=== PATIENT | female | born 1965 | race Caucasian/White ===

== ENCOUNTER 2017-06-27 10:34 | Observation (INO) | payer BC, OTHER ==
[~2017-06-27] VITALS: Ht 172.7 cm; Wt 108.0 kg
[2017-06-27] VITALS (9 sets, daily range): BP systolic 92–140; BP diastolic 51–63; PULSE 86–102; RESP 16–20; TEMP 98.7–100.7; O2SAT 92–100
[~2017-06-27 10:34] MED LIST: IBUP-232 PO; Z.0.NO CURRENT MEDS
[2017-06-27] MEDS ORDERED: LEVO125T4 PO (11:14)
[2017-06-27] MEDS ORDERED: BACT400T PO (11:14)
[2017-06-27] MEDS ORDERED: DULO1CAP PO (11:14)
[2017-06-27] MEDS ORDERED: GABA100C4 PO (11:14)
[2017-06-27] MEDS ORDERED: CYAN1000P IM (11:14)
[2017-06-27] MEDS ORDERED: SODIUM CHLOR 0.9% 1000 ML INJ 1,000 ML IV ONE (11:30)
[2017-06-27] MEDS ORDERED: diphenhydrAMINE HCL 50 MG/ML VIAL IV PUSH ONE ×2 (11:30→21:30)
--- NOTE | 2017-06-27 11:40 | PD ---
HPI Chief Complaint: Fever Time Seen by Provider: 11:16 Travel History International Travel<30 days: No Contact w/Intl Traveler<30days: No Traveled to known affect area: No History of Present Illness HPI 52 yo female here for evaluation of rash and fever. Per patient the fever has been ongoing since Friday and the rash has been ongoing for the past 3-4 days. Per patient she is currently on Bactrim and is about to finish Bactrim for cellulitis to her left leg. Patient is currently being treated with chemotherapy for melanoma that has metastasized. Patient follows with the [facility] for [facility]. [facility] she has been having high 102 fevers and because of the rash that told her to come here to get evaluated. She follows with Dr. Roberts in [place]. Per patient she last received her chemo 2 weeks ago. She has been doing fine. No new treatments. Per patient the rash is itchy and not painful. Patient has a rash over her arms torso and legs. She states that about 2 weeks ago she was diagnosed with left leg colitis and started on Bactrim. She has taken Bactrim before with no issues. Per patient she has no chest pain. No diarrhea. No urinary symptoms. No cough or runny nose. No bowel movement changes. No other symptoms. Per patient she has no pain other than itchiness to where the rash is. Has no allergies to medication. No other medical issues at this time. PFSH Past Medical History Chemotherapy: Yes ?: Not Menopausal: Yes Social History Alcohol Use: No (occasional) Tobacco Use: No Substance Use: No Allergies-Medications (Allergen,Severity, Reaction): Coded Allergies: No Known Allergies (Verified , 04/11/08) Reported Meds & Prescriptions Reported Meds & Active Scripts Active Reported Bactrim (Sulfamethoxazole-Trimethoprim) 400-80 Mg Tab 1 Tab PO BID Gabapentin 100 Mg Cap 100 Mg PO TID Duloxetine DR (Duloxetine HCl) 20 Mg Capdr 20 Mg PO BID Cyanocobalamin Inj (Cyanocobalamin) 1,000 Mcg/Ml Inj 1,000 Mcg IM Q30D Levothyroxine (Levothyroxine Sodium) 125 Mcg Tab 125 Mcg PO DAILY Review of Systems Except as stated in HPI: all other systems reviewed are Neg Physical Exam Narrative GENERAL: SKIN: Warm and dry. Patient has an erythematous blanchable rash on the arms and legs that is pruritic and not painful. HEAD: Atraumatic. Normocephalic. EYES: Pupils equal and round. No scleral icterus. No injection or drainage. ENT: No nasal bleeding or discharge. Mucous membranes pink and moist. Tongue is midline. No uvula deviation. TMs are clear with no sign of infection or perforation. NECK: Trachea midline. No JVD. CARDIOVASCULAR: Regular rate and rhythm. No murmurs, S3, S4. RESPIRATORY: No accessory muscle use. Clear to auscultation. Breath sounds equal bilaterally. GASTROINTESTINAL: Abdomen soft, non-tender, nondistended. Hepatic and splenic margins not palpable. MUSCULOSKELETAL: Extremities without clubbing, cyanosis, or edema. No obvious deformities. Full range of motion of the upper and lower extremities bilaterally. 2+ pulses bilaterally. NEUROLOGICAL: Awake and alert. No obvious cranial nerve deficits. Motor grossly within normal limits. Five out of 5 muscle strength in the arms and legs. Normal speech. PSYCHIATRIC: Appropriate mood and affect; insight and judgment normal. Data Data Last Documented VS Vital Signs Date Time Temp Pulse Resp B/P (MAP) Pulse Ox O2 Delivery O2 Flow Rate FiO2 06/27/17 13:21 100.7 95 18 117/57 (77) 97 06/27/17 12:25 Room Air Orders Orders Electrocardiogram (06/27/17 11:16) Complete Blood Count With Diff (06/27/17 11:16) Comprehensive Metabolic Panel (06/27/17 11:16) Prothrombin Time / Inr (Pt) (06/27/17 11:16) Act Partial Throm Time (Ptt) (06/27/17 11:16) Blood Culture (06/27/17 11:16) Lipase (06/27/17 11:16) Urinalysis - C+S If Indicated (06/27/17 11:16) Magnesium (Mg) (06/27/17 11:16) Thyroid Stimulating Hormone (06/27/17 11:16) Chest, Single Ap (06/27/17 11:16) Iv Access Insert/Monitor (06/27/17 11:16) Ecg Monitoring (06/27/17 11:16) Oximetry (06/27/17 11:16) Lactic Acid Sepsis Protocol (06/27/17 11:16) Sodium Chlor 0.9% 1000 Ml Inj (Ns 1000 M (06/27/17 11:30) Diphenhydramine Inj (Benadryl Inj) (06/27/17 11:30) Us Leg Venous Doppler (06/27/17 ) Acetaminophen (Tylenol) (06/27/17 13:30) Influenzae A/B Antigen (06/27/17 13:47) Cefepime Inj (Maxipime Inj) (06/27/17 13:47) Admit Order (Ed Use Only) (06/27/17 15:58) Labs Laboratory Tests Test 06/27/17 11:36 White Blood Count 4.1 TH/MM3 Red Blood Count 4.68 MIL/MM3 Hemoglobin 13.6 GM/DL Hematocrit 39.8 % Mean Corpuscular Volume 85.1 FL Mean Corpuscular Hemoglobin 29.2 PG Mean Corpuscular Hemoglobin Concent 34.3 % Red Cell Distribution Width 14.4 % Platelet Count 126 TH/MM3 Mean Platelet Volume 7.3 FL Neutrophils (%) (Auto) 81.7 % Lymphocytes (%) (Auto) 8.8 % Monocytes (%) (Auto) 4.0 % Eosinophils (%) (Auto) 5.3 % Basophils (%) (Auto) 0.2 % Neutrophils # (Auto) 3.4 TH/MM3 Lymphocytes # (Auto) 0.4 TH/MM3 Monocytes # (Auto) 0.2 TH/MM3 Eosinophils # (Auto) 0.2 TH/MM3 Basophils # (Auto) 0.0 TH/MM3 CBC Comment DIFF FINAL Differential Comment Prothrombin Time 11.3 SEC Prothromb Time International Ratio 1.1 RATIO Activated Partial Thromboplast Time 31.7 SEC Urine Color YELLOW Urine Turbidity CLEAR Urine pH 6.0 Urine Specific [place] 1.030 Urine Protein 30 mg/dL Urine Glucose (UA) NEG mg/dL Urine Ketones NEG mg/dL Urine Occult Blood NEG Urine Nitrite NEG Urine Bilirubin NEG Urine Urobilinogen 2.0 MG/DL Urine Leukocyte Esterase NEG Urine RBC 3 /hpf Urine WBC 5 /hpf Urine Squamous Epithelial Cells 4 /hpf Urine Mucus FEW /lpf Microscopic Urinalysis Comment CULT NOT INDICATED Blood Urea Nitrogen 14 MG/DL Creatinine 1.33 MG/DL Random Glucose 109 MG/DL Total Protein 7.6 GM/DL Albumin 3.9 GM/DL Calcium Level 8.4 MG/DL Magnesium Level 1.9 MG/DL Alkaline Phosphatase 89 U/L Aspartate Amino Transf (AST/SGOT) 34 U/L Alanine Aminotransferase (ALT/SGPT) 35 U/L Total Bilirubin 0.6 MG/DL Sodium Level 136 MEQ/L Potassium Level 3.9 MEQ/L Chloride Level 102 MEQ/L Carbon Dioxide Level 27.1 MEQ/L Anion Gap 7 MEQ/L Estimat Glomerular Filtration Rate 42 ML/MIN Lactic Acid Level 1.0 mmol/L Lipase 117 U/L Thyroid Stimulating Hormone 3rd Gen 11.600 uIU/ML MDM Medical Decision Making Medical Screen Exam Complete: Yes Emergency Medical Condition: Yes Medical Record Reviewed: Yes Interpretation(s) CBC & BMP Diagram 06/27/17 11:36 Total Protein 7.6, Albumin 3.9, Calcium Level 8.4 L, Magnesium Level 1.9, Alkaline Phosphatase 89, Aspartate Amino Transf (AST/SGOT) 34, Alanine Aminotransferase (ALT/SGPT) 35, Total Bilirubin 0.6 Last Impressions Chest X-Ray 06/27/17 1116 Signed Impressions: Service Date/Time: Tuesday, June 27, 2017 11:44 - CONCLUSION: No acute disease. Board Certified Radiologist. This report was verified electronically. Lower Extremity Ultrasound 06/27/17 0000 Signed Impressions: Service Date/Time: Tuesday, June 27, 2017 12:34 - CONCLUSION: 1. No DVT left leg. 2. Several lymph nodes in left groin the largest measuring 2.8 x 1.5 x 2.4 cm. Edson Yoder MD lactic acid WNL UA WNL Differential Diagnosis Sepsis versus neutropenic fever versus rash versus allergic reaction versus cellulitis versus normal exam versus UTI versus pneumonia Narrative Course 52-year-old female that presents to the ED for evaluation of rash and fever. Patient was properly examined and was found to have signs and symptoms of unclear etiology at this time. She does not appear to have a fever tachycardia at this time. She does have significant history of recent diagnosis with cellulitis as well as cancer patient. Labs and imaging were ordered. She was given Benadryl here as well as IV fluids to see if this will help with the rash. labs and imaging showed no sign of acute disease. We repeated the patient 's heart rate as well as a pressure and it came elevated. She was given Tylenol. Unclear etiology of the fever. No obvious source at this time. My attending recommends starting patient cefepime secondary to cancer patient. Recommends admission for further eval of fever of unknown etiology. I was able to get in touch with the patient's oncologist who recommends the patient be admitted for further eval as well as from the rash she tells us that she is actually taking immunotherapy and no chemotherapy and the rash to be a reaction to the immunotherapy. She cannot say for certain that it could be related to the Bactrim or the immunotherapy and recommends that if rash does not improve after bactrim DC'd to start patient on high-dose steroids that should improve the rash. She gives me her cell phone which is [phone] (Dr Roberts). Case discussed with Dr Collado who agrees to admission for obs for now. Diagnosis Primary Impression: Fever of unknown origin (FUO) Additional Impression: Rash due to allergy Admitting Information Admitting Physician Requests: Mark Braxton Jun 27, 2017 11:40
[2017-06-27 11:53] LABS: AUTOMATED NEUTROPHIL # 3.4 TH/MM3 (1.8-7.7); BASOPHIL % 0.2 % (0.0-2.0); EOSINOPHIL # 0.2 TH/MM3 (0-0.4); EOSINOPHIL % 5.3 % (0.0-4.0); HEMATOCRIT 39.8 % (35.0-46.0); HEMOGLOBIN 13.6 GM/DL (11.6-15.3); LYMPH % 8.8 % (9.0-44.0); LYMPHOCYTE # 0.4 TH/MM3 (1.0-4.8); MEAN CELL VOLUME 85.1 FL (80.0-100.0); MEAN CORPUSCULAR HEMOGLOBIN 29.2 PG (27.0-34.0); MEAN CORPUSCULAR HGB CONC 34.3 % (32.0-36.0); MEAN PLATELET VOLUME 7.3 FL (7.0-11.0); MONOCYTE # 0.2 TH/MM3 (0-0.9); NEUT % 81.7 % (16.0-70.0); PLATELET COUNT 126 TH/MM3 (150-450); RED BLOOD COUNT 4.68 MIL/MM3 (4.00-5.30); RED CELL DISTRIBUTION WIDTH 14.4 % (11.6-17.2); WHITE BLOOD COUNT 4.1 TH/MM3 (4.0-11.0)
[2017-06-27 12:03] LABS: INTERNATIONAL NORMALIZED RATIO 1.1 RATIO; PROTHROMBIN TIME - PATIENT 11.3 SEC (9.8-11.6)
--- NOTE | 2017-06-27 12:06 | RADRPT ---
EXAM DATE/TIME: 06/27/2017 11:44 [facility] COMPARISON: No previous studies available for comparison. INDICATIONS : Fever, body aches, and whole body rashing. MEDICAL HISTORY : Melanoma. SURGICAL HISTORY : None. ENCOUNTER: Initial ACUITY: 2 days PAIN SCORE: 3/10 LOCATION: Entire body. FINDINGS: A single view of the chest demonstrates the lungs to be symmetrically aerated without evidence of mas s, infiltrate or effusion. The cardiomediastinal contours are unremarkable. Osseous structures are intact. CONCLUSION: No acute disease. Board Certified Radiologist. This report was verified electronically.
[2017-06-27 12:07] LABS: ALBUMIN 3.9 GM/DL (3.4-5.0); ALT (GPT) 35 U/L (10-53); AST (GOT) 34 U/L (15-37); BICARBONATE 27.1 MEQ/L (21.0-32.0); BLOOD UREA NITROGEN 14 MG/DL (7-18); CALCIUM 8.4 MG/DL (8.5-10.1); CHLORIDE 102 MEQ/L (98-107); CREATININE 1.33 MG/DL (0.50-1.00); GLOMERULAR FILTRATION RATE 42 ML/MIN (>89); GLUCOSE,RANDOM 109 MG/DL (74-106); MAGNESIUM 1.9 MG/DL (1.5-2.5); SODIUM (NA) 136 MEQ/L (136-145)
[2017-06-27 12:18] LABS: ALKALINE PHOSPHATASE 89 U/L (45-117); TOTAL BILIRUBIN ADULT 0.6 MG/DL (0.2-1.0); TOTAL PROTEIN 7.6 GM/DL (6.4-8.2)
[2017-06-27 12:23] LABS: BLOOD, URINE NEG (NEG); GLUCOSE,URINE NEG (NEG); KETONE, URINE NEG (NEG); MUCUS URINE FEW /lpf (OCC); NITRITE,URINE NEG (NEG); SQUAMOUS EPITHELIAL CELL URINE 4 /hpf (0-5); URINE COLOR YELLOW (YELLW/STRAW); URINE LEUKOCYTE ESTERASE NEG (NEG)
[2017-06-27 12:28] LABS: BILIRUBIN, URINE NEG (NEG)
--- NOTE | 2017-06-27 13:18 | RADRPT ---
EXAM DATE/TIME: 06/27/2017 12:34 [facility] COMPARISON: No previous studies available for comparison. INDICATIONS : Left leg swelling. MEDICAL HISTORY : Melenoma. Left leg swelling. SURGICAL HISTORY : Chemotherapy. ENCOUNTER: Initial ACUITY: 1 week PAIN SCORE: 2/10 LOCATION: Left leg. TECHNIQUE: Venous ultrasound of the leg was performed from the inguinal ligament to the proximal calf. Real-estella e, color Doppler and spectral tracing, compression and augmentation techniques were used. FINDINGS: There is normal compressibility of the deep venous system from the inguinal region to the proximal ca lf. No echogenic clot is seen in the lumen of the common femoral, femoral, popliteal, and posterior tibial veins. There is a normal response of the venous system to proximal and distal augmentation an d respiration. CONCLUSION: 1. No DVT left leg. 2. Several lymph nodes in left groin the largest measuring 2.8 x 1.5 x 2.4 cm. Edson Yoder MD on June 27, 2017 at 13:14 Board Certified Radiologist. This report was verified electronically.
[2017-06-27] MEDS ORDERED: ACETAMINOPHEN 325 MG TAB PO ONE (13:30)
--- NOTE | 2017-06-27 13:38 | PD ---
Physical Exam Narrative I, Dr. Latham, have reviewed the advance practice practitioner's documentation and am in agreement, met with the patient face to face, made the diagnosis, and the medical decision making was done by me. *My assessment and Findings: Fever in immunocompromised patient vs. neutropenic fever vs. bacteremia vs. drug reaction 52yo F with melanoma on chemo here with c/o fever since Friday. Pt has been having fever and is on bactrim for left leg cellulitis. Pt then developed a generalized maculopapular rash that started in her legs and now in abdomen, chest, arms. No mucosal involvement. This rash is itchy and improved with diphenhydramine. Feel that this may be related to bactrim. Labs reviewed, no leukocytosis. H/H normal. Mild thrombocytopenia at 126,000. Lactic acid normal. UA negative. CXR negative. US left leg showed no DVT. Several lymph nodes in left groin. Pt is febrile at 100.7F. Since pt is immunocompromise, will sent blood culture and cover with cefepime. Pt given acetaminophen for fever. Will admit for observation. Discussed with pt's oncologist who said that pt is actually on immunotherapy and that if rash does not improve after discontinuation of bactrim, that this could be autoimmune dermatitis and that pt will then need high dose steroid. Will let admitting team know about this. Data Data Last Documented VS Vital Signs Date Time Temp Pulse Resp B/P (MAP) Pulse Ox O2 Delivery O2 Flow Rate FiO2 06/27/17 15:21 90 16 105/56 (72) 96 Room Air 06/27/17 13:21 100.7 Orders Orders Electrocardiogram (06/27/17 11:16) Complete Blood Count With Diff (06/27/17 11:16) Comprehensive Metabolic Panel (06/27/17 11:16) Prothrombin Time / Inr (Pt) (06/27/17 11:16) Act Partial Throm Time (Ptt) (06/27/17 11:16) Blood Culture (06/27/17 11:16) Lipase (06/27/17 11:16) Urinalysis - C+S If Indicated (06/27/17 11:16) Magnesium (Mg) (06/27/17 11:16) Thyroid Stimulating Hormone (06/27/17 11:16) Chest, Single Ap (06/27/17 11:16) Iv Access Insert/Monitor (06/27/17 11:16) Ecg Monitoring (06/27/17 11:16) Oximetry (06/27/17 11:16) Lactic Acid Sepsis Protocol (06/27/17 11:16) Sodium Chlor 0.9% 1000 Ml Inj (Ns 1000 M (06/27/17 11:30) Diphenhydramine Inj (Benadryl Inj) (06/27/17 11:30) Us Leg Venous Doppler (06/27/17 ) Acetaminophen (Tylenol) (06/27/17 13:30) Influenzae A/B Antigen (06/27/17 13:47) Cefepime Inj (Maxipime Inj) (06/27/17 13:47) Admit Order (Ed Use Only) (06/27/17 15:58) Labs Laboratory Tests Test 06/27/17 11:36 White Blood Count 4.1 TH/MM3 Red Blood Count 4.68 MIL/MM3 Hemoglobin 13.6 GM/DL Hematocrit 39.8 % Mean Corpuscular Volume 85.1 FL Mean Corpuscular Hemoglobin 29.2 PG Mean Corpuscular Hemoglobin Concent 34.3 % Red Cell Distribution Width 14.4 % Platelet Count 126 TH/MM3 Mean Platelet Volume 7.3 FL Neutrophils (%) (Auto) 81.7 % Lymphocytes (%) (Auto) 8.8 % Monocytes (%) (Auto) 4.0 % Eosinophils (%) (Auto) 5.3 % Basophils (%) (Auto) 0.2 % Neutrophils # (Auto) 3.4 TH/MM3 Lymphocytes # (Auto) 0.4 TH/MM3 Monocytes # (Auto) 0.2 TH/MM3 Eosinophils # (Auto) 0.2 TH/MM3 Basophils # (Auto) 0.0 TH/MM3 CBC Comment DIFF FINAL Differential Comment Prothrombin Time 11.3 SEC Prothromb Time International Ratio 1.1 RATIO Activated Partial Thromboplast Time 31.7 SEC Urine Color YELLOW Urine Turbidity CLEAR Urine pH 6.0 Urine Specific [place] 1.030 Urine Protein 30 mg/dL Urine Glucose (UA) NEG mg/dL Urine Ketones NEG mg/dL Urine Occult Blood NEG Urine Nitrite NEG Urine Bilirubin NEG Urine Urobilinogen 2.0 MG/DL Urine Leukocyte Esterase NEG Urine RBC 3 /hpf Urine WBC 5 /hpf Urine Squamous Epithelial Cells 4 /hpf Urine Mucus FEW /lpf Microscopic Urinalysis Comment CULT NOT INDICATED Blood Urea Nitrogen 14 MG/DL Creatinine 1.33 MG/DL Random Glucose 109 MG/DL Total Protein 7.6 GM/DL Albumin 3.9 GM/DL Calcium Level 8.4 MG/DL Magnesium Level 1.9 MG/DL Alkaline Phosphatase 89 U/L Aspartate Amino Transf (AST/SGOT) 34 U/L Alanine Aminotransferase (ALT/SGPT) 35 U/L Total Bilirubin 0.6 MG/DL Sodium Level 136 MEQ/L Potassium Level 3.9 MEQ/L Chloride Level 102 MEQ/L Carbon Dioxide Level 27.1 MEQ/L Anion Gap 7 MEQ/L Estimat Glomerular Filtration Rate 42 ML/MIN Lactic Acid Level 1.0 mmol/L Lipase 117 U/L Free Thyroxine 0.93 NG/DL Thyroid Stimulating Hormone 3rd Gen 11.600 uIU/ML MDM Supervised Visit with [facility]: Yes Interpretation(s) EKG: NSR 71bpm. Normal axis. No ST segment elevation or depression. Diagnosis Primary Impression: Fever Qualified Codes: R50.9 - Fever, unspecified Olivia Latham DO Jun 27, 2017 13:38
[2017-06-27] MEDS ORDERED: CEFEPIME INJ 2,000 MG in SODIUM CHLORIDE 0.9% INJ 100 ML IV STA (13:47)
[2017-06-27] MEDS ORDERED: BISACODYL 10 MG SUPP RECTAL PRN (16:00)
[2017-06-27] MEDS ORDERED: MAGNESIUM HYDROXIDE SUSP 30 ML CUP PO PRN (16:00)
[2017-06-27] MEDS ORDERED: LACTULOSE SYRUP 20 GM/30 ML CUP PO PRN (16:00)
[2017-06-27] MEDS ORDERED: SODIUM CHLORIDE 0.9% FLUSH 10 ML FLUSH IV FLUSH PRN (16:00)
[2017-06-27] MEDS ORDERED: NALOXONE HCL 0.4 MG/ML AMP IV PUSH PRN (16:00)
[2017-06-27] MEDS ORDERED: SENNOSIDES 8.6 MG TAB PO PRN (16:00)
[2017-06-27] MEDS ORDERED: ONDANSETRON HCL 4 MG/2 ML VIAL IVP PRN (16:00)
[2017-06-27] MEDS: SODIUM CHLOR 0.9% 1000 ML INJ 1,000 ML IV SCH (18:32)
[2017-06-27] MEDS: HEPARIN SODIUM - SQ 10,000 UNITS/ML VIAL SQ SCH (18:32)
[2017-06-27] MEDS: DOCUSATE SODIUM 50 MG/SENNA 8.6 MG TAB PO SCH (21:00)
--- NOTE | 2017-06-27 21:19 | HHI.HP ---
[facility] Admission Diagnosis fever of unknown etiology, on immunotherapy, rash Diagnoses: (1) Fever of unknown origin (FUO) (2) Rash due to allergy Chief Complaint: Fever and rash Travel History International Travel<30 Days: No Contact w/Intl Traveler <30 Da: No Traveled to Known Affected Are: No History of Present Illness Mrs. Sevilla is a very pleasant female patient with a history of recurrent metastatic melanoma being treated at the [facility] with immunotherapy. She presented to the emergency room at the advice of her primary care physician at the [facility] for evaluation of fever and pruritic rash 2 days. The patient is seen in the CDU. The patient was treated 2 weeks ago for left lower extremity cellulitis with Bactrim and she only has 1 dose remaining since treatment started. She reports that she has had a fever up to 102 that has persisted despite treatment with Tylenol and Motrin (fever initially responded to these but not this morning prompting her to seek medical advice). Her symptoms started on 06/25. Along with the fever, came a rash that she initially thought was a "heat rash" until it continued to spread all over her body over the course of 2 days. The rash is pruritic in nature. She has some associated chills, increased thirst, and nausea without vomiting. She denies any diarrhea , cough, chest pain, or shortness of breath. Review of Systems Except as stated in HPI: all other systems reviewed are Neg Past Family Social History Past Medical History Metastatic melanoma recurrence -currently on immunotherapy at [facility] with oncologist Dr. Roberts Peripheral neuropathy Hypothyroidism Vitamin B12 deficiency . Past Surgical History Bilateral breast biopsies Wide excision of the left upper thigh melanoma with sentinel node biopsy 2015 . Reported Medications Reported Meds & Active Scripts Active Reported Bactrim (Sulfamethoxazole-Trimethoprim) 400-80 Mg Tab 1 Tab PO BID Gabapentin 100 Mg Cap 100 Mg PO TID Duloxetine DR (Duloxetine HCl) 20 Mg Capdr 20 Mg PO BID Cyanocobalamin Inj (Cyanocobalamin) 1,000 Mcg/Ml Inj 1,000 Mcg IM Q30D Levothyroxine (Levothyroxine Sodium) 125 Mcg Tab 125 Mcg PO DAILY . Allergies: Coded Allergies: No Known Allergies (Verified Allergy, Mild, 04/11/08) Family History Family history is unknown as patient is adopted -her children are alive and well . Social History Tobacco: Smoked socially for a couple of years in her 20s . Physical Exam Vital Signs Vital Signs Date Time Temp Pulse Resp B/P (MAP) Pulse Ox O2 Delivery O2 Flow Rate FiO2 06/27/17 18:44 99 06/27/17 18:22 98.7 92 18 108/61 (77) 99 06/27/17 17:23 86 18 101/57 (72) 98 Room Air 06/27/17 16:21 86 18 92/54 (67) 96 Room Air 06/27/17 15:21 90 16 105/56 (72) 96 Room Air 06/27/17 14:21 90 18 112/57 (75) 100 06/27/17 13:21 100.7 95 18 117/57 (77) 97 06/27/17 12:25 102 18 126/59 (81) 100 Room Air 06/27/17 10:35 99.8 91 16 140/63 (88) 99 Physical Exam CONSTITUTIONAL: This is an overweight female patient, complaining of chills. INTEGUMENTARY: Diffuse erythematous maculopapular rash on entire torso, legs, arms and facial flushing noted. HEAD: Atraumatic. Normocephalic. EYES: No scleral icterus. No injection or drainage. ENT: Nose without bleeding, purulent drainage. NECK: Trachea midline. No JVD. CARDIOVASCULAR: Regular rate and rhythm without murmurs, gallops, or rubs. RESPIRATORY: Clear to auscultation. Breath sounds equal bilaterally. No wheezes , rales, or rhonchi. GASTROINTESTINAL: Abdomen soft, non-tender, nondistended. No guarding. MUSCULOSKELETAL: Extremities without clubbing, cyanosis, or edema. No calf tenderness. NEUROLOGICAL: Awake and alert. Motor and sensory grossly within normal limits. Normal speech. . Laboratory Laboratory Tests Test 06/27/17 11:36 White Blood Count 4.1 Red Blood Count 4.68 Hemoglobin 13.6 Hematocrit 39.8 Mean Corpuscular Volume 85.1 Mean Corpuscular Hemoglobin 29.2 Mean Corpuscular Hemoglobin Concent 34.3 Red Cell Distribution Width 14.4 Platelet Count 126 Mean Platelet Volume 7.3 Neutrophils (%) (Auto) 81.7 Lymphocytes (%) (Auto) 8.8 Monocytes (%) (Auto) 4.0 Eosinophils (%) (Auto) 5.3 Basophils (%) (Auto) 0.2 Neutrophils # (Auto) 3.4 Lymphocytes # (Auto) 0.4 Monocytes # (Auto) 0.2 Eosinophils # (Auto) 0.2 Basophils # (Auto) 0.0 CBC Comment DIFF FINAL Differential Comment Prothrombin Time 11.3 Prothromb Time International Ratio 1.1 Activated Partial Thromboplast Time 31.7 Urine Color YELLOW Urine Turbidity CLEAR Urine pH 6.0 Urine Specific [place] 1.030 Urine Protein 30 Urine Glucose (UA) NEG Urine Ketones NEG Urine Occult Blood NEG Urine Nitrite NEG Urine Bilirubin NEG Urine Urobilinogen 2.0 Urine Leukocyte Esterase NEG Urine RBC 3 Urine WBC 5 Urine Squamous Epithelial Cells 4 Urine Mucus FEW Microscopic Urinalysis Comment CULT NOT INDICATED Blood Urea Nitrogen 14 Creatinine 1.33 Random Glucose 109 Total Protein 7.6 Albumin 3.9 Calcium Level 8.4 Magnesium Level 1.9 Alkaline Phosphatase 89 Aspartate Amino Transf (AST/SGOT) 34 Alanine Aminotransferase (ALT/SGPT) 35 Total Bilirubin 0.6 Sodium Level 136 Potassium Level 3.9 Chloride Level 102 Carbon Dioxide Level 27.1 Anion Gap 7 Estimat Glomerular Filtration Rate 42 Lactic Acid Level 1.0 Lipase 117 Thyroid Stimulating Hormone 3rd Gen 11.600 Date/Time Source Procedure Growth Status 06/27/17 11:36 Blood Peripheral Aerobic Blood Culture Pending Received 06/27/17 11:36 Blood Peripheral Anaerobic Blood Culture Pending Received 06/27/17 15:50 Nasal Washing Influenza Types A,B Antigen (JIMMY) - Final NEGATIVE FOR FLU A AND B ANTIGEN.... Complete Result Diagram: 06/27/17 1136 06/27/17 1136 Imaging Last Impressions Chest X-Ray 06/27/17 1116 Signed Impressions: Service Date/Time: Tuesday, June 27, 2017 11:44 - CONCLUSION: No acute disease. Board Certified Radiologist. This report was verified electronically. Lower Extremity Ultrasound 06/27/17 0000 Signed Impressions: Service Date/Time: Tuesday, June 27, 2017 12:34 - CONCLUSION: 1. No DVT left leg. 2. Several lymph nodes in left groin the largest measuring 2.8 x 1.5 x 2.4 cm. Edson Yoder MD . Caprini VTE Risk Assessment Caprini VTE Risk Assessment: Mod/High Risk (score >= 2) Caprini Risk Assessment Model Point Value = 1 Point Value = 2 Point Value = 3 Point Value = 5 Age 41-60 Minor surgery BMI > 25 kg/m2 Swollen legs Varicose veins or History of unexplained or recurrent spontaneous Oral contraceptives or hormone replacement Sepsis (< 1 month) Serious lung disease, including pneumonia (< 1 month) Abnormal pulmonary function Acute myocardial infarction Congestive heart failure (< 1 month) History of inflammatory bowel disease Medical patient at bed rest Age 61-74 Arthroscopic surgery Major open surgery (> 45 min) Laparoscopic surgery (> 45 min) Malignancy Confined to bed (> 72 hours) Immobilizing plaster cast Central venous access Age >= 75 History of VTE Family history of VTE Factor V Leiden Prothrombin [id number] Lupus anticoagulant Anticardiolipin antibodies Elevated serum homocysteine Heparin-induced thrombocytopenia Other congenital or acquired thrombophilia Stroke (< 1 month) Elective arthroplasty Hip, pelvis, or leg fracture Acute spinal cord injury (< 1 month) Prophylaxis Regimen Total Risk Factor Score Risk Level Prophylaxis Regimen 0-1 Low Early ambulation 2 Moderate Order ONE of the following: *Sequential Compression Device (SCD) *Heparin 5000 units SQ BID 3-4 Higher Order ONE of the following medications: *Heparin 5000 units SQ TID *Enoxaparin/Lovenox 40 mg SQ daily (WT < 150 kg, CrCl > 30 mL/min) *Enoxaparin/Lovenox 30 mg SQ daily (WT < 150 kg, CrCl > 10-29 mL/min) *Enoxaparin/Lovenox 30 mg SQ BID (WT < 150 kg, CrCl > 30 mL/min) AND/OR *Sequential Compression Device (SCD) 5 or more Highest Order ONE of the following medications: *Heparin 5000 units SQ TID (Preferred with Epidurals) *Enoxaparin/Lovenox 40 mg SQ daily (WT < 150 kg, CrCl > 30 mL/min) *Enoxaparin/Lovenox 30 mg SQ daily (WT < 150 kg, CrCl > 10-29 mL/min) *Enoxaparin/Lovenox 30 mg SQ BID (WT < 150 kg, CrCl > 30 mL/min) AND *Sequential Compression Device (SCD) Assessment and Plan Problem List: (1) Fever of unknown origin (FUO) ICD Code: R50.9 - Fever, unspecified Status: Acute (2) Rash due to allergy ICD Code: R21 - Rash and other nonspecific skin eruption Status: Acute Assessment and Plan Mrs. Sevilla is a very pleasant female patient with a history of recurrent metastatic melanoma being treated at the [facility] with immunotherapy. She presented to the emergency room at the advice of her primary care physician at the [facility] for evaluation of fever and pruritic rash 2 days. Fever of unknown origin Diffuse maculopapular rash of uncertain etiology, suspect allergic reaction - Bactrim vs Immunotherapy -The case was discussed by the ER medical provider with the patient's [facility] oncologist Dr. Roberts - cell number [phone] -she provided her cell phone number in the event that we need to contact her any further -she recommended holding Bactrim and if there is no improvement in the rash or worsening of the rash, initiate high-dose steroids -Hold Bactrim -Normal saline IV fluids at 75 cc/h -Blood cultures 2 performed in the ED, await results -Acetaminophen 650 mg p.o. every 4 hours as needed fever -Benadryl 50 mg p.o. every 6 hours as needed pruritus -Infectious disease consultation -Negative influenza testing in the ED Renal insufficiency, acute -BUN 14, creatinine 1.33, estimated GFR 42 -IV fluid hydration as above -Avoid nephrotoxins -Monitor renal functions with BMP in a.m. Hypothyroidism -TSH elevated on admission but free T4 is within normal parameters -Continue home Synthroid Neuropathy -Resume home medications: Neurontin, Cymbalta DVT prophylaxis -Heparin 5000 units subcu every 12 hours Discussed Condition With Dr. Armstrong, patient, and RN Ashley Alexandra Jun 27, 2017 21:19
[2017-06-27] MEDS: SODIUM CHLORIDE 0.9% FLUSH 10 ML FLUSH IV FLUSH SCH (21:30)
[2017-06-27] MEDS: DULoxetine HCl DR 20 MG CAP PO SCH (21:30)
[2017-06-27] MEDS ORDERED: diphenhydrAMINE HCL 25 MG CAP PO ONE (21:30)
[2017-06-27] MEDS: GABAPENTIN 100 MG CAP PO SCH (21:51)
[2017-06-28] MEDS: ACETAMINOPHEN 325 MG TAB PO PRN ×2 (00:52→17:46)
[2017-06-28 04:57] VITALS: BP 104/54; PULSE 91; RESP 20; TEMP 98.3; O2SAT 95
[2017-06-28] MEDS: HEPARIN SODIUM - SQ 10,000 UNITS/ML VIAL SQ SCH ×2 (05:34→17:42)
[2017-06-28] MEDS: SODIUM CHLOR 0.9% 1000 ML INJ 1,000 ML IV SCH ×2 (05:35→17:43)
[2017-06-28] MEDS: LEVOTHYROXINE SODIUM 125 MCG TAB PO SCH (05:35)
[2017-06-28 07:56] VITALS: BP 95/57; PULSE 87; RESP 18; TEMP 98; O2SAT 96
[2017-06-28] MEDS ORDERED: GABAPENTIN 100 MG CAP PO SCH (09:00)
[2017-06-28] MEDS: GABAPENTIN 100 MG CAP PO SCH ×3 (09:18→17:42)
[2017-06-28] MEDS: DULoxetine HCl DR 20 MG CAP PO SCH ×2 (09:18→22:41)
[2017-06-28] MEDS: SODIUM CHLORIDE 0.9% FLUSH 10 ML FLUSH IV FLUSH SCH ×2 (09:19→21:00)
[2017-06-28] MEDS: DOCUSATE SODIUM 50 MG/SENNA 8.6 MG TAB PO SCH ×2 (09:20→21:00)
[2017-06-28] MEDS: diphenhydrAMINE HCL 50 MG CAP PO PRN ×2 (09:23→17:46)
[2017-06-28 09:43] LABS: BASOPHIL % 0.2 % (0.0-2.0); EOSINOPHIL # 0.1 TH/MM3 (0-0.4); EOSINOPHIL % 3.9 % (0.0-4.0); HEMATOCRIT 38.9 % (35.0-46.0); LYMPH % 13.6 % (9.0-44.0); LYMPHOCYTE # 0.5 TH/MM3 (1.0-4.8); MEAN CELL VOLUME 86.5 FL (80.0-100.0); MEAN CORPUSCULAR HGB CONC 33.5 % (32.0-36.0); MEAN PLATELET VOLUME 7.7 FL (7.0-11.0); MONO % 2.7 % (0.0-8.0); MONOCYTE # 0.1 TH/MM3 (0-0.9); NEUT % 79.6 % (16.0-70.0); PLATELET COUNT 104 TH/MM3 (150-450); WHITE BLOOD COUNT 3.7 TH/MM3 (4.0-11.0)
[2017-06-28 10:08] LABS: BICARBONATE 21.7 MEQ/L (21.0-32.0); CALCIUM 7.5 MG/DL (8.5-10.1); CREATININE 0.93 MG/DL (0.50-1.00)
--- NOTE | 2017-06-28 11:46 | HHI.PR ---
Subjective Remarks in no acute distress. with on and off low grade fever. still with generalized rash with some itching. no sob. Objective Vitals Vital Signs Date Time Temp Pulse Resp B/P (MAP) Pulse Ox O2 Delivery O2 Flow Rate FiO2 06/28/17 07:56 98.0 87 18 95/57 (70) 96 06/28/17 04:57 98.3 91 20 104/54 (71) 95 06/27/17 23:38 100.3 94 20 108/51 (70) 92 06/27/17 18:44 99 06/27/17 18:22 98.7 92 18 108/61 (77) 99 06/27/17 17:23 86 18 101/57 (72) 98 Room Air 06/27/17 16:21 86 18 92/54 (67) 96 Room Air 06/27/17 15:21 90 16 105/56 (72) 96 Room Air 06/27/17 14:21 90 18 112/57 (75) 100 06/27/17 13:21 100.7 95 18 117/57 (77) 97 06/27/17 12:25 102 18 126/59 (81) 100 Room Air I/O 06/27/17 06/27/17 06/27/17 06/28/17 06/28/17 06/28/17 07:00 15:00 23:00 07:00 15:00 23:00 Intake Total 1100 ml Balance 1100 ml Intake IV Total 1100 ml # Voids 1 Result Diagram: 06/28/17 0820 06/28/17 0820 Imaging Last Impressions Chest X-Ray 06/27/17 1116 Signed Impressions: Service Date/Time: Tuesday, June 27, 2017 11:44 - CONCLUSION: No acute disease. Board Certified Radiologist. This report was verified electronically. Lower Extremity Ultrasound 06/27/17 0000 Signed Impressions: Service Date/Time: Tuesday, June 27, 2017 12:34 - CONCLUSION: 1. No DVT left leg. 2. Several lymph nodes in left groin the largest measuring 2.8 x 1.5 x 2.4 cm. Edson Yoder MD Objective Remarks GENERAL: This is a well-nourished, well-developed patient, in no apparent distress. CARDIOVASCULAR: Regular rate and regular rhythm without murmurs, gallops, or rubs. RESPIRATORY: Clear to auscultation. Breath sounds equal bilaterally. No wheezes , rales, or rhonchi. GASTROINTESTINAL: Abdomen soft, non-tender, nondistended. Normal, active bowel sounds MUSCULOSKELETAL: Extremities without clubbing, cyanosis, or edema. NEURO: Alert & Oriented x4 to person, place, time, situation. Moves all ext x4 skin; macular rash noted on the lower extremities and trunk Medications and IVs Inpatient Medications Acetaminophen (Tylenol) 650 mg Q4H PRN PO pain/temp > 100.4 Last administered on 06/28/17at 00:52; Start 06/27/17 at 21:45 Bisacodyl (Dulcolax Supp) 10 mg DAILY PRN RECTAL SEVERE CONSITIPATION; Start at 16:00 Cefepime HCl 2000 mg/Sodium Chloride 100 ml @ 200 mls/hr ONCE STAT IV Last administered on 06/27/17at 14:09; Start 06/27/17 at 13:47; Stop 06/27/17 at 14:16 ; Status DC Diphenhydramine HCl (Benadryl Inj) 25 mg ONCE ONCE IV PUSH Last administered on 06/27/17at 21:52; Start 06/27/17 at 21:30; Stop 06/27/17 at 21:31; Status DC Diphenhydramine HCl (Benadryl) 50 mg Q6H PRN PO pruritis Last administered on at 09:23; Start 06/27/17 at 21:30 Duloxetine HCl (Cymbalta Dr) 20 mg BID PO Last administered on 06/28/17 09:18 ; Start 06/27/17 at 21:00 Gabapentin (Neurontin) 100 mg TID PO Last administered on 06/28/17 09:18; Start 06/27/17 at 21:30 Heparin Sodium (Porcine) (Heparin Inj) 5,000 units Q12H SQ Last administered on 06/28/17at 05:34; Start 06/27/17 at 17:00 Lactulose (Lactulose Liq) 30 ml DAILY PRN PO SEVERE CONSITIPATION; Start at 16:00 Levothyroxine Sodium (Synthroid) 125 mcg DAILY@0600 PO Last administered on 4/ 21/18at 05:35; Start 06/28/17 at 06:00 Magnesium Hydroxide (Milk Of Ascencion Liq) 30 ml Q12H PRN PO Mild constipation ; Start 06/27/17 at 16:00 Naloxone HCl (Narcan Inj) 0.4 mg UNSCH PRN IV PUSH SEE LABEL COMMENTS; Start at 16:00 Ondansetron HCl (Zofran Inj) 4 mg Q6H PRN IVP NAUSEA OR VOMITING; Start at 16:00 Senna/Docusate Sodium (Bailee-Colace) 1 tab BID PO ; Start 06/27/17 at 21:00 Sennosides (Senokot) 17.2 mg Q12H PRN PO Moderate constipation; Start 06/27/17 at 16:00 Sodium Chloride (NS Flush) 2 ml BID IV FLUSH Last administered on 06/28/17at 09: 19; Start 06/27/17 at 21:00 A/P Problem List: (1) Fever of unknown origin (FUO) ICD Code: R50.9 - Fever, unspecified Status: Acute (2) Rash due to allergy ICD Code: R21 - Rash and other nonspecific skin eruption Status: Acute Assessment and Plan Fever of unknown origin Diffuse maculopapular rash of uncertain etiology, suspect allergic reaction - Bactrim vs Immunotherapy -The case was discussed by the ER medical provider with the [facility] - cell number [phone] -she provided her cell phone number in the event that we need to contact her any further -she recommended holding Bactrim and if there is no improvement in the rash or worsening of the rash, initiate high-dose steroids -Hold Bactrim -Normal saline IV fluids at 75 cc/h -Blood cultures 2 performed in the ED, await results -Acetaminophen 650 mg p.o. every 4 hours as needed fever -Benadryl 50 mg p.o. every 6 hours as needed pruritus -Infectious disease consultation -Negative influenza testing in the ED Renal insufficiency, acute -BUN 14, creatinine 1.33, estimated GFR 42 -IV fluid hydration as above -Avoid nephrotoxins -Monitor renal functions with BMP in a.m. Hypothyroidism -TSH elevated on admission but free T4 is within normal parameters -Continue home Synthroid Neuropathy -Resumed home medications: Neurontin, Cymbalta DVT prophylaxis -Heparin 5000 units subcu every 12 hours Ivette Osman MD Jun 28, 2017 11:46
[2017-06-28 12:30] VITALS: BP 118/57; PULSE 94; RESP 18; O2SAT 96
--- NOTE | 2017-06-28 12:31 | PD.CONS ---
History of Present Illness Service Infectious disease Consult Requested By Dr Osman Reason for Consult Evaluate patient with rash and fever [facility] Diagnoses: History of Present Illness Patient seen and examined. Records reviewed. Patient is a 52-year-old female, presented to the hospital complaining of fever and rash for 2 days. Patient has known recurrent metastatic melanoma, and has been on treatment with immunotherapy since March of this year. She has been getting treatment every 3 weeks, the last one was June 17. His initial melanoma was back in 2015, and at that time he had a postoperative infection in his left lower extremity. Since then she has not had any problem with any infection in her left lower extremity. About a week or so ago, she developed redness in her left leg, and patient was started on Bactrim. 2 days prior to admission she started having fever and chills, and she initially noted a rash on her leg, and soon after that she noted the rash in her upper extremity, and then became generalized. She has been taking nonsteroidal agents for her high fevers. She denies any respiratory complaint, any GI or any urinary complaints. Since admission highest temperature has been 100.7. Her WBC is down to 3.7. Urinalysis is unremarkable. Chest x-ray is okay. Patient got a dose of cefepime yesterday. She is currently not on any antibiotics. Infectious disease consultation has been requested to evaluate the patient. Review of Systems Constitutional: COMPLAINS OF: Fever, Chills, Night Sweats Eyes: DENIES: Eye pain Ears, nose, mouth, throat: COMPLAINS OF: Throat pain, DENIES: Nasal discharge, Oral lesions, Running Nose, Sinus Pain, Toothache Respiratory: DENIES: Cough, Shortness of breath Cardiovascular: DENIES: Chest pain, Palpitations, Syncope Gastrointestinal: DENIES: Abdominal pain, Constipation, Diarrhea, Nausea, Vomiting, Difficulty Swallowing Genitourinary: DENIES: Urinary frequency, Urgency, Dysuria Musculoskeletal: DENIES: Joint pain, Joint Swelling Integumentary: COMPLAINS OF: Pruritus, Rash Hematologic/lymphatic: COMPLAINS OF: Lymphadenopathy Neurologic: DENIES: Headache, Localized weakness Psychiatric: DENIES: Hallucinations Past Family Social History Allergies: Coded Allergies: No Known Allergies (Verified Allergy, Mild, 04/11/08) Past Medical History Metastatic melanoma recurrence -[facility] with [facility] Roberts Peripheral neuropathy Hypothyroidism Vitamin B12 deficiency Past Surgical History Bilateral breast biopsies Wide excision of the left upper thigh melanoma with sentinel node biopsy 2015 Active Ordered Medications Current Medications Medications (Trade) Dose Ordered Sig/Qi Route Start Time Stop Time Status Last Admin Sodium Chloride 1,000 ml @ 75 mls/hr [id number] IV 06/27/17 16:00 06/28/17 05:35 (NS Flush) 2 ml UNSCH PRN IV FLUSH 06/27/17 16:00 (NS Flush) 2 ml BID IV FLUSH 06/27/17 21:00 06/28/17 09:19 (Zofran Inj) 4 mg Q6H PRN IVP 06/27/17 16:00 (Heparin Inj) 5,000 units Q12H SQ 06/27/17 17:00 06/28/17 05:34 (Narcan Inj) 0.4 mg UNSCH PRN IV PUSH 06/27/17 16:00 (Bailee-Colace) 1 tab BID PO 06/27/17 21:00 (Milk Of Magnesia Liq) 30 ml Q12H PRN PO 06/27/17 16:00 (Senokot) 17.2 mg Q12H PRN PO 06/27/17 16:00 (Dulcolax Supp) 10 mg DAILY PRN RECTAL 06/27/17 16:00 (Lactulose Liq) 30 ml DAILY PRN PO 06/27/17 16:00 (Cymbalta Dr) 20 mg BID PO 06/27/17 21:00 06/28/17 09:18 (Synthroid) 125 mcg DAILY@0600 PO 06/28/17 06:00 06/28/17 05:35 (Benadryl) 50 mg Q6H PRN PO 06/27/17 21:30 06/28/17 09:23 (Neurontin) 100 mg TID PO 06/27/17 21:30 06/28/17 09:18 (Tylenol) 650 mg Q4H PRN PO 06/27/17 21:45 06/28/17 00:52 Family History Family history is not known, patient states she is adopted Social History Tobacco: Smoked socially for a couple of years in her 20s No alcohol abuse No illicit drugs Physical Exam Vital Signs Vital Signs Date Time Temp Pulse Resp B/P (MAP) Pulse Ox O2 Delivery O2 Flow Rate FiO2 06/28/17 07:56 98.0 87 18 95/57 (70) 96 06/28/17 04:57 98.3 91 20 104/54 (71) 95 06/27/17 23:38 100.3 94 20 108/51 (70) 92 06/27/17 18:44 99 06/27/17 18:22 98.7 92 18 108/61 (77) 99 06/27/17 17:23 86 18 101/57 (72) 98 Room Air 06/27/17 16:21 86 18 92/54 (67) 96 Room Air 06/27/17 15:21 90 16 105/56 (72) 96 Room Air 06/27/17 14:21 90 18 112/57 (75) 100 06/27/17 13:21 100.7 95 18 117/57 (77) 97 06/27/17 12:25 102 18 126/59 (81) 100 Room Air Physical Exam GENERAL: Patient is a well-nourished, well-developed female, awake and alert , not in respiratory distress. SKIN: Warm and dry. She has a generalized erythematous maculopapular rash EYES: [place] conjunctiva. No petechia or hemorrhage. Has mild conjunctival injection in the left eye. Pupils equal, round and reactive to light. Extraocular movements full and intact. No scleral icterus. EARS, NOSE AND THROAT: Nose without bleeding or purulent nasal discharge. No sinus tenderness. Mucous membranes pink and slightly dry. No oral lesions noted. No exudate. No oral thrush. NECK: Trachea midline. Supple and not tender, no meningeal signs CARDIOVASCULAR: Regular rate and rhythm. No murmurs, rubs or gallops heard RESPIRATORY: Clear to auscultation. Breath sounds equal bilaterally. No rales , wheezing or rhonchi ABDOMEN: Soft, non-tender, nondistended. Bowel sounds present and normoactive. No guarding. No rebound. No organomegaly. EXTREMITIES: No clubbing, cyanosis. LLE larger compared to RLE. Has scattered nodules in LLE, some are red color, some are purplish color in varying sizes. No joint effusion, has good ROM. No calf tenderness. Well perfused and warm. NEUROLOGICAL: Awake and alert. Cranial nerves grossly intact. Motor grossly within normal limits. PSYCHIATRIC: Normal affect, calm and cooperative. LINE: No evidence of infection Laboratory Laboratory Tests Test 06/28/17 08:20 White Blood Count 3.7 Red Blood Count 4.50 Hemoglobin 13.0 Hematocrit 38.9 Mean Corpuscular Volume 86.5 Mean Corpuscular Hemoglobin 29.0 Mean Corpuscular Hemoglobin Concent 33.5 Red Cell Distribution Width 15.0 Platelet Count 104 Mean Platelet Volume 7.7 Neutrophils (%) (Auto) 79.6 Lymphocytes (%) (Auto) 13.6 Monocytes (%) (Auto) 2.7 Eosinophils (%) (Auto) 3.9 Basophils (%) (Auto) 0.2 Neutrophils # (Auto) 3.0 Lymphocytes # (Auto) 0.5 Monocytes # (Auto) 0.1 Eosinophils # (Auto) 0.1 Basophils # (Auto) 0.0 CBC Comment DIFF FINAL Differential Comment Blood Urea Nitrogen 12 Creatinine 0.93 Random Glucose 101 Calcium Level 7.5 Sodium Level 139 Potassium Level 3.7 Chloride Level 108 Carbon Dioxide Level 21.7 Anion Gap 9 Estimat Glomerular Filtration Rate 63 Date/Time Source Procedure Growth Status 06/27/17 11:36 Blood Peripheral Aerobic Blood Culture - Preliminary NO GROWTH IN 1 DAY Resulted 06/27/17 11:36 Blood Peripheral Anaerobic Blood Culture - Preliminary NO GROWTH IN 1 DAY Resulted 06/27/17 15:50 Nasal Washing Influenza Types A,B Antigen (JIMMY) - Final NEGATIVE FOR FLU A AND B ANTIGEN.... Complete Result Diagram: 06/28/17 0820 06/28/17 0820 Imaging RADIOLOGY STUDIES/FILMS REVIEWED Last Impressions Chest X-Ray 06/27/17 1116 Signed Impressions: Service Date/Time: Tuesday, June 27, 2017 11:44 - CONCLUSION: No acute disease. Board Certified Radiologist. This report was verified electronically. Lower Extremity Ultrasound 06/27/17 0000 Signed Impressions: Service Date/Time: Tuesday, June 27, 2017 12:34 - CONCLUSION: 1. No DVT left leg. 2. Several lymph nodes in left groin the largest measuring 2.8 x 1.5 x 2.4 cm. Edson Yoder MD Assessment and Plan Assessment and Plan IMPRESSION Febrile illess with rash, likely due to Bactrim Drug eruption due to Bactrim Recurrent melanoma LLE Neutropenia, ?due to bactrim RECOMMENDATION Follow C/S MOnitor temps Follow CBC IV steroids Will not start any systemic Abx Monitor progress I will determine need for Abx depending on her clinical course I will follow along with you Thank you for this consultation Discussed Condition With Explained plan to the patient Edna Varma MD Jun 28, 2017 12:31
[2017-06-28] MEDS: methylPREDNISolone SOD SUCC 40 MG/1 ML VIAL IV PUSH SCH (12:37)
[2017-06-28 12:45] VITALS: TEMP 98.6
[2017-06-28 13:28] LABS: ALBUMIN 2.9 GM/DL (3.4-5.0); DIRECT BILIRUBIN ADULT 0.2 MG/DL (0.0-0.2); INDIRECT BILIRUBIN 0.4 MG/DL (0.0-0.8); TOTAL BILIRUBIN ADULT 0.6 MG/DL (0.2-1.0)
[2017-06-28 16:10] VITALS: BP 97/52; PULSE 91; RESP 18; TEMP 99.2; O2SAT 94
--- NOTE | 2017-06-28 16:43 | EKG ---
Date Performed: 06/27/2017 Time Performed: 13:17:34 PTAGE: 52 years EKG: Sinus rhythm LOW QRS VOLTAGE IN PRECORDIAL LEADS INCOMPLETE RIGHT BUNDLE BRANCH BLOCK NONSPECIFIC T-WAVE ABNORMAL ITY BORDERLINE ECG NO PREVIOUS TRACING DOCTOR: Myron Nixon Interpretating Date/Time 06/28/2017 16:45:13
[2017-06-28 19:06] VITALS: TEMP 99.1
[2017-06-29] VITALS: BP 107/64; PULSE 70; RESP 18; TEMP 97.7; O2SAT 97
[2017-06-29] MEDS: methylPREDNISolone SOD SUCC 40 MG/1 ML VIAL IV PUSH SCH ×2 (02:00→13:44)
[2017-06-29] MEDS: diphenhydrAMINE HCL 50 MG CAP PO PRN (02:01)
[2017-06-29] MEDS: LEVOTHYROXINE SODIUM 125 MCG TAB PO SCH (05:34)
[2017-06-29] MEDS: HEPARIN SODIUM - SQ 10,000 UNITS/ML VIAL SQ SCH ×2 (05:34→17:40)
[2017-06-29 08:27] VITALS: BP 110/62; PULSE 70; RESP 20; TEMP 98.2; O2SAT 96
[2017-06-29] MEDS: SODIUM CHLORIDE 0.9% FLUSH 10 ML FLUSH IV FLUSH SCH ×2 (08:35→21:37)
[2017-06-29] MEDS: DULoxetine HCl DR 20 MG CAP PO SCH ×2 (08:35→21:37)
[2017-06-29] MEDS: GABAPENTIN 100 MG CAP PO SCH ×3 (08:35→17:40)
[2017-06-29] MEDS: DOCUSATE SODIUM 50 MG/SENNA 8.6 MG TAB PO SCH ×2 (08:36→21:00)
[2017-06-29] MEDS: SODIUM CHLOR 0.9% 1000 ML INJ 1,000 ML IV SCH ×2 (08:36→21:20)
--- NOTE | 2017-06-29 09:40 | HHI.PR ---
Subjective Remarks in no acute distress. afebrile this morning. still with generalized rash but itching is better. Objective Vitals Vital Signs Date Time Temp Pulse Resp B/P (MAP) Pulse Ox O2 Delivery O2 Flow Rate FiO2 06/29/17 08:27 98.2 70 20 110/62 (78) 96 06/29/17 00:00 97.7 70 18 107/64 (78) 97 06/28/17 19:06 99.1 06/28/17 16:10 99.2 91 18 97/52 (67) 94 06/28/17 12:45 98.6 06/28/17 12:30 94 18 118/57 (77) 96 Result Diagram: 06/28/17 0820 06/28/17 0820 Imaging Last Impressions Chest X-Ray 06/27/17 1116 Signed Impressions: Service Date/Time: Tuesday, June 27, 2017 11:44 - CONCLUSION: No acute disease. Board Certified Radiologist. This report was verified electronically. Lower Extremity Ultrasound 06/27/17 0000 Signed Impressions: Service Date/Time: Tuesday, June 27, 2017 12:34 - CONCLUSION: 1. No DVT left leg. 2. Several lymph nodes in left groin the largest measuring 2.8 x 1.5 x 2.4 cm. Edson Yoder MD Objective Remarks GENERAL: This is a well-nourished, well-developed patient, in no apparent distress. CARDIOVASCULAR: Regular rate and regular rhythm without murmurs, gallops, or rubs. RESPIRATORY: Clear to auscultation. Breath sounds equal bilaterally. No wheezes , rales, or rhonchi. GASTROINTESTINAL: Abdomen soft, non-tender, nondistended. Normal, active bowel sounds MUSCULOSKELETAL: Extremities without clubbing, cyanosis, or edema. NEURO: Alert & Oriented x4 to person, place, time, situation. Moves all ext x4 skin; macular rash noted on the lower extremities and trunk Medications and IVs Inpatient Medications Acetaminophen (Tylenol) 650 mg Q4H PRN PO pain/temp > 100.4 Last administered on 06/28/17at 17:46; Start 06/27/17 at 21:45 Bisacodyl (Dulcolax Supp) 10 mg DAILY PRN RECTAL SEVERE CONSITIPATION; Start at 16:00 Cefepime HCl 2000 mg/Sodium Chloride 100 ml @ 200 mls/hr ONCE STAT IV Last administered on 06/27/17at 14:09; Start 06/27/17 at 13:47; Stop 06/27/17 at 14:16 ; Status DC Diphenhydramine HCl (Benadryl Inj) 25 mg ONCE ONCE IV PUSH Last administered on 06/27/17at 21:52; Start 06/27/17 at 21:30; Stop 06/27/17 at 21:31; Status DC Diphenhydramine HCl (Benadryl) 50 mg Q6H PRN PO pruritis Last administered on at 02:01; Start 06/27/17 at 21:30 Duloxetine HCl (Cymbalta Dr) 20 mg BID PO Last administered on 06/29/17at 08:35 ; Start 06/27/17 at 21:00 Gabapentin (Neurontin) 100 mg TID PO Last administered on 06/29/17at 08:35; Start 06/27/17 at 21:30 Heparin Sodium (Porcine) (Heparin Inj) 5,000 units Q12H SQ Last administered on 06/29/17at 05:34; Start 06/27/17 at 17:00 Lactulose (Lactulose Liq) 30 ml DAILY PRN PO SEVERE CONSITIPATION; Start at 16:00 Levothyroxine Sodium (Synthroid) 125 mcg DAILY@0600 PO Last administered on at 05:34; Start 06/28/17 at 06:00 Magnesium Hydroxide (Milk Of Magnesia Liq) 30 ml Q12H PRN PO Mild constipation ; Start 06/27/17 at 16:00 Methylprednisolone Sodium Succinate (SoluMEDROL INJ) 40 mg Q12H IV PUSH Last administered on 06/29/17at 02:00; Start 06/28/17 at 13:00; Stop 06/30/17 at 01:01 Naloxone HCl (Narcan Inj) 0.4 mg UNSCH PRN IV PUSH SEE LABEL COMMENTS; Start at 16:00 Ondansetron HCl (Zofran Inj) 4 mg Q6H PRN IVP NAUSEA OR VOMITING; Start at 16:00 Senna/Docusate Sodium (Bailee-Colace) 1 tab BID PO ; Start 06/27/17 at 21:00 Sennosides (Senokot) 17.2 mg Q12H PRN PO Moderate constipation; Start 06/27/17 at 16:00 Sodium Chloride (NS Flush) 2 ml BID IV FLUSH Last administered on 06/29/17at 08: 35; Start 06/27/17 at 21:00 A/P Problem List: (1) Fever of unknown origin (FUO) ICD Code: R50.9 - Fever, unspecified Status: Acute (2) Rash due to allergy ICD Code: R21 - Rash and other nonspecific skin eruption Status: Acute Assessment and Plan fever with rash- suspect due to bactrim -The case was previously discussed by the ER medical provider with the [facility] Roberts - cell number [phone] -she provided her cell phone number in the event that we need to contact her any further -Hold Bactrim -Normal saline IV fluids at 75 cc/h -Blood cultures 2 performed in the ED, negative so far. -Acetaminophen 650 mg p.o. every 4 hours as needed fever -Benadryl 50 mg p.o. every 6 hours as needed pruritus -continue IV steroids. -Infectious disease consultation appreciated; no antibiotics for now. Renal insufficiency, acute -resolved. Hypothyroidism -TSH elevated on admission but free T4 is within normal parameters -Continue home Synthroid Neuropathy -Resumed home medications: Neurontin, Cymbalta DVT prophylaxis -Heparin 5000 units subcu every 12 hours Discharge Planning dc home within the next one-two days - pending clinical course. Ivette Osman MD Jun 29, 2017 09:40
[2017-06-29 12:17] VITALS: BP 106/88; PULSE 83; RESP 20; TEMP 98.2; O2SAT 96
[2017-06-29] MEDS: diphenhydrAMINE HCL 50 MG/ML VIAL IV PUSH PRN ×2 (13:49→23:43)
--- NOTE | 2017-06-29 17:18 | HHI.IDPN ---
Subjective Subjective Remarks Patient is a 52-year-old female, presented to the hospital complaining of fever and rash for 2 days. Patient has known recurrent metastatic melanoma, and has been on treatment with immunotherapy since March of this year. She has been getting treatment every 3 weeks, the last one was June 17. His initial melanoma was back in 2015, and at that time he had a postoperative infection in his left lower extremity. Since then she has not had any problem with any infection in her left lower extremity. About a week or so ago, she developed redness in her left leg, and patient was started on Bactrim. 2 days prior to admission she started having fever and chills, and she initially noted a rash on her leg, and soon after that she noted the rash in her upper extremity, and then became generalized. She has been taking nonsteroidal agents for her high fevers. She denies any respiratory complaint, any GI or any urinary complaints. Since admission highest temperature has been 100.7. Her WBC is down to 3.7. Urinalysis is unremarkable. Chest x-ray is okay. Patient got a dose of cefepime yesterday. She is currently not on any antibiotics. Infectious disease consultation has been requested to evaluate the patient. Notes reviewed Temps better Rash same, not better, itchy Has gotten 3 doses of solumedrol C/O some dryness and sores in her inner lip C/S negative AST slightly up Antibiotics No antibiotics Current Medications Medications (Trade) Dose Ordered Sig/Qi Route Start Time Stop Time Status Last Admin Sodium Chloride 1,000 ml @ 75 mls/hr [id number] IV 06/27/17 16:00 06/29/17 08:36 (NS Flush) 2 ml UNSCH PRN IV FLUSH 06/27/17 16:00 (NS Flush) 2 ml BID IV FLUSH 06/27/17 21:00 06/29/17 08:35 (Zofran Inj) 4 mg Q6H PRN IVP 06/27/17 16:00 (Heparin Inj) 5,000 units Q12H SQ 06/27/17 17:00 06/29/17 05:34 (Narcan Inj) 0.4 mg UNSCH PRN IV PUSH 06/27/17 16:00 (Bailee-Colace) 1 tab BID PO 06/27/17 21:00 (Milk Of Magnesia Liq) 30 ml Q12H PRN PO 06/27/17 16:00 (Senokot) 17.2 mg Q12H PRN PO 06/27/17 16:00 (Dulcolax Supp) 10 mg DAILY PRN RECTAL 06/27/17 16:00 (Lactulose Liq) 30 ml DAILY PRN PO 06/27/17 16:00 (Cymbalta Dr) 20 mg BID PO 06/27/17 21:00 06/29/17 08:35 (Synthroid) 125 mcg DAILY@0600 PO 06/28/17 06:00 06/29/17 05:34 (Neurontin) 100 mg TID PO 06/27/17 21:30 06/29/17 13:42 (Tylenol) 650 mg Q4H PRN PO 06/27/17 21:45 06/28/17 17:46 (SoluMEDROL INJ) 40 mg Q12H IV PUSH 06/28/17 13:00 06/30/17 01:01 06/29/17 13:44 (Benadryl Inj) 25 mg Q6H PRN IV PUSH 06/29/17 11:30 06/29/17 13:49 Lines PIV Past Medical History Metastatic melanoma recurrence -currently on immunotherapy at [place] with oncologist Dr. Roberts Peripheral neuropathy Hypothyroidism Vitamin B12 deficiency Past Surgical History Bilateral breast biopsies Wide excision of the left upper thigh melanoma with sentinel node biopsy 2015 Allergies: Coded Allergies: No Known Allergies (Verified Allergy, Mild, 04/11/08) Objective . Vital Signs Date Time Temp Pulse Resp B/P (MAP) Pulse Ox O2 Delivery O2 Flow Rate FiO2 06/29/17 12:17 98.2 83 20 106/88 (94) 96 06/29/17 08:27 98.2 70 20 110/62 (78) 96 06/29/17 00:00 97.7 70 18 107/64 (78) 97 06/28/17 19:06 99.1 06/29/17 06/29/17 06/30/17 15:00 23:00 07:00 # Voids 3 . Laboratory Tests Test 06/28/17 08:20 White Blood Count 3.7 TH/MM3 Red Blood Count 4.50 MIL/MM3 Hemoglobin 13.0 GM/DL Hematocrit 38.9 % Mean Corpuscular Volume 86.5 FL Mean Corpuscular Hemoglobin 29.0 PG Mean Corpuscular Hemoglobin Concent 33.5 % Red Cell Distribution Width 15.0 % Platelet Count 104 TH/MM3 Mean Platelet Volume 7.7 FL Neutrophils (%) (Auto) 79.6 % Lymphocytes (%) (Auto) 13.6 % Monocytes (%) (Auto) 2.7 % Eosinophils (%) (Auto) 3.9 % Basophils (%) (Auto) 0.2 % Neutrophils # (Auto) 3.0 TH/MM3 Lymphocytes # (Auto) 0.5 TH/MM3 Monocytes # (Auto) 0.1 TH/MM3 Eosinophils # (Auto) 0.1 TH/MM3 Basophils # (Auto) 0.0 TH/MM3 CBC Comment DIFF FINAL Differential Comment Laboratory Tests Test 06/28/17 08:20 Blood Urea Nitrogen 12 MG/DL Creatinine 0.93 MG/DL Random Glucose 101 MG/DL Calcium Level 7.5 MG/DL Sodium Level 139 MEQ/L Potassium Level 3.7 MEQ/L Chloride Level 108 MEQ/L Carbon Dioxide Level 21.7 MEQ/L Anion Gap 9 MEQ/L Estimat Glomerular Filtration Rate 63 ML/MIN Total Bilirubin 0.6 MG/DL Direct Bilirubin 0.2 MG/DL Indirect Bilirubin 0.4 MG/DL Aspartate Amino Transf (AST/SGOT) 48 U/L Alanine Aminotransferase (ALT/SGPT) 44 U/L Alkaline Phosphatase 90 U/L Total Protein 6.0 GM/DL Albumin 2.9 GM/DL Microbiology Date/Time Source Procedure Growth Status 06/27/17 11:36 Blood Peripheral Aerobic Blood Culture - Preliminary NO GROWTH IN 2 DAYS Resulted 06/27/17 11:36 Blood Peripheral Anaerobic Blood Culture - Preliminary NO GROWTH IN 2 DAYS Resulted 06/27/17 11:30 Blood Peripheral Aerobic Blood Culture - Preliminary NO GROWTH IN 2 DAYS Resulted 06/27/17 11:30 Blood Peripheral Anaerobic Blood Culture - Preliminary NO GROWTH IN 2 DAYS Resulted 06/27/17 15:50 Nasal Washing Influenza Types A,B Antigen (JIMMY) - Final NEGATIVE FOR FLU A AND B ANTIGEN.... Complete Imaging Last Impressions Chest X-Ray 06/27/17 1116 Signed Impressions: Service Date/Time: Tuesday, June 27, 2017 11:44 - CONCLUSION: No acute disease. Board Certified Radiologist. This report was verified electronically. Lower Extremity Ultrasound 06/27/17 0000 Signed Impressions: Service Date/Time: Tuesday, June 27, 2017 12:34 - CONCLUSION: 1. No DVT left leg. 2. Several lymph nodes in left groin the largest measuring 2.8 x 1.5 x 2.4 cm. Edson Yoder MD Physical Exam GENERAL: Patient is a well-nourished, well-developed female, awake and alert , not in respiratory distress. SKIN: Warm and dry. She has a generalized erythematous maculopapular rash - some are coalescing EYES: [place] conjunctiva. No petechia or hemorrhage. Has mild conjunctival injection in the left eye. Pupils equal, round and reactive to light. Extraocular movements full and intact. No scleral icterus. EARS, NOSE AND THROAT: Nose without bleeding or purulent nasal discharge. No sinus tenderness. Mucous membranes pink and slightly dry. No oral lesions noted. No exudate. No oral thrush. NECK: Trachea midline. Supple and not tender, no meningeal signs CARDIOVASCULAR: Regular rate and rhythm. No murmurs, rubs or gallops heard RESPIRATORY: Clear to auscultation. Breath sounds equal bilaterally. No rales , wheezing or rhonchi ABDOMEN: Soft, non-tender, nondistended. Bowel sounds present and normoactive. No guarding. No rebound. No organomegaly. EXTREMITIES: No clubbing, cyanosis. LLE larger compared to RLE. Has scattered nodules in LLE, some are red color, some are purplish color in varying sizes. No joint effusion, has good ROM. No calf tenderness. Well perfused and warm. NEUROLOGICAL: Awake and alert. Cranial nerves grossly intact. Motor grossly within normal limits. PSYCHIATRIC: Normal affect, calm and cooperative. LINE: No evidence of infection Assessment & Plan Remarks IMPRESSION Febrile illness with rash, likely due to Bactrim, better Drug eruption due to Bactrim, same Recurrent melanoma LLE Neutropenia, ?due to bactrim RECOMMENDATION Follow C/S Monitor temps Follow CBC IV steroids, may need to give more Will not start any systemic Abx Monitor progress Edna Varma MD Jun 29, 2017 17:18
[2017-06-29 19:56] LABS: AUTOMATED NEUTROPHIL # 3.6 TH/MM3 (1.8-7.7); EOSINOPHIL % 0.4 % (0.0-4.0); HEMATOCRIT 32.2 % (35.0-46.0); HEMOGLOBIN 11.1 GM/DL (11.6-15.3); LYMPH % 16.1 % (9.0-44.0); LYMPHOCYTE # 0.7 TH/MM3 (1.0-4.8); MEAN CELL VOLUME 85.2 FL (80.0-100.0); MEAN CORPUSCULAR HEMOGLOBIN 29.4 PG (27.0-34.0); MEAN CORPUSCULAR HGB CONC 34.5 % (32.0-36.0); MEAN PLATELET VOLUME 8.1 FL (7.0-11.0); MONO % 4.5 % (0.0-8.0); MONOCYTE # 0.2 TH/MM3 (0-0.9); PLATELET COUNT 114 TH/MM3 (150-450); RED BLOOD COUNT 3.77 MIL/MM3 (4.00-5.30); RED CELL DISTRIBUTION WIDTH 14.8 % (11.6-17.2); WHITE BLOOD COUNT 4.6 TH/MM3 (4.0-11.0)
[2017-06-30 00:34] VITALS: BP 116/69; PULSE 68; RESP 16; TEMP 97.9; O2SAT 98
[2017-06-30] MEDS: methylPREDNISolone SOD SUCC 40 MG/1 ML VIAL IV PUSH SCH (01:00)
[2017-06-30 05:47] VITALS: BP 110/59; PULSE 70; RESP 16; TEMP 98.9; O2SAT 95
[2017-06-30] MEDS: HEPARIN SODIUM - SQ 10,000 UNITS/ML VIAL SQ SCH (05:50)
[2017-06-30] MEDS: LEVOTHYROXINE SODIUM 125 MCG TAB PO SCH (05:50)
[2017-06-30 07:48] VITALS: BP 105/61; PULSE 70; RESP 16; TEMP 98.3; O2SAT 95
[2017-06-30] MEDS: DULoxetine HCl DR 20 MG CAP PO SCH (08:49)
[2017-06-30] MEDS: GABAPENTIN 100 MG CAP PO SCH (08:49)
[2017-06-30] MEDS: DOCUSATE SODIUM 50 MG/SENNA 8.6 MG TAB PO SCH (08:50)
[2017-06-30] MEDS: SODIUM CHLORIDE 0.9% FLUSH 10 ML FLUSH IV FLUSH SCH (08:50)
[2017-06-30] MEDS: SODIUM CHLOR 0.9% 1000 ML INJ 1,000 ML IV SCH (10:40)
[2017-06-30 11:54] VITALS: BP 107/64; PULSE 70; RESP 16; TEMP 98; O2SAT 97
--- NOTE | 2017-06-30 12:13 | HHI.PR ---
Subjective Remarks in no acute distress. afebrile. rash is better along with the itching. no new complaints. Objective Vitals Vital Signs Date Time Temp Pulse Resp B/P (MAP) Pulse Ox O2 Delivery O2 Flow Rate FiO2 06/30/17 11:54 98.0 70 16 107/64 (78) 97 06/30/17 07:48 98.3 70 16 105/61 (76) 95 06/30/17 05:47 98.9 70 16 110/59 (76) 95 06/30/17 00:34 97.9 68 16 116/69 (85) 98 06/29/17 12:17 98.2 83 20 106/88 (94) 96 I/O 06/29/17 06/29/17 06/29/17 06/30/17 06/30/17 06/30/17 07:00 15:00 23:00 07:00 15:00 23:00 # Voids 3 2 Result Diagram: 06/29/17 1941 06/28/17 0820 Imaging Last Impressions Chest X-Ray 06/27/17 1116 Signed Impressions: Service Date/Time: Tuesday, June 27, 2017 11:44 - CONCLUSION: No acute disease. Board Certified Radiologist. This report was verified electronically. Lower Extremity Ultrasound 06/27/17 0000 Signed Impressions: Service Date/Time: Tuesday, June 27, 2017 12:34 - CONCLUSION: 1. No DVT left leg. 2. Several lymph nodes in left groin the largest measuring 2.8 x 1.5 x 2.4 cm. Edson Yoder MD Objective Remarks GENERAL: This is a well-nourished, well-developed patient, in no apparent distress. CARDIOVASCULAR: Regular rate and regular rhythm without murmurs, gallops, or rubs. RESPIRATORY: Clear to auscultation. Breath sounds equal bilaterally. No wheezes , rales, or rhonchi. GASTROINTESTINAL: Abdomen soft, non-tender, nondistended. Normal, active bowel sounds MUSCULOSKELETAL: Extremities without clubbing, cyanosis, or edema. NEURO: Alert & Oriented x4 to person, place, time, situation. Moves all ext x4 skin; macular rash noted on the lower extremities and trunk Medications and IVs Inpatient Medications Acetaminophen (Tylenol) 650 mg Q4H PRN PO pain/temp > 100.4 Last administered on 06/28/17at 17:46; Start 06/27/17 at 21:45 Bisacodyl (Dulcolax Supp) 10 mg DAILY PRN RECTAL SEVERE CONSITIPATION; Start at 16:00 Cefepime HCl 2000 mg/Sodium Chloride 100 ml @ 200 mls/hr ONCE STAT IV Last administered on 06/27/17at 14:09; Start 06/27/17 at 13:47; Stop 06/27/17 at 14:16 ; Status DC Diphenhydramine HCl (Benadryl Inj) 25 mg Q6H PRN IV PUSH rash/itching Last administered on 06/29/17at 23:43; Start 06/29/17 at 11:30 Diphenhydramine HCl (Benadryl) 50 mg Q6H PRN PO pruritis Last administered on at 02:01; Start 06/27/17 at 21:30; Stop 06/29/17 at 11:29; Status DC Duloxetine HCl (Cymbalta Dr) 20 mg BID PO Last administered on 06/30/17at 08:49 ; Start 06/27/17 at 21:00 Gabapentin (Neurontin) 100 mg TID PO Last administered on 06/30/17at 08:49; Start 06/27/17 at 21:30 Heparin Sodium (Porcine) (Heparin Inj) 5,000 units Q12H SQ Last administered on 06/30/17at 05:50; Start 06/27/17 at 17:00 Lactulose (Lactulose Liq) 30 ml DAILY PRN PO SEVERE CONSITIPATION; Start at 16:00 Levothyroxine Sodium (Synthroid) 125 mcg DAILY@0600 PO Last administered on at 05:50; Start 06/28/17 at 06:00 Magnesium Hydroxide (Milk Of Magnesia Liq) 30 ml Q12H PRN PO Mild constipation ; Start 06/27/17 at 16:00 Methylprednisolone Sodium Succinate (SoluMEDROL INJ) 40 mg Q12H IV PUSH Last administered on 06/30/17at 01:00; Start 06/28/17 at 13:00; Stop 06/30/17 at 01:01 ; Status DC Naloxone HCl (Narcan Inj) 0.4 mg UNSCH PRN IV PUSH SEE LABEL COMMENTS; Start at 16:00 Ondansetron HCl (Zofran Inj) 4 mg Q6H PRN IVP NAUSEA OR VOMITING; Start at 16:00 Senna/Docusate Sodium (Bailee-Colace) 1 tab BID PO ; Start 06/27/17 at 21:00 Sennosides (Senokot) 17.2 mg Q12H PRN PO Moderate constipation; Start 06/27/17 at 16:00 Sodium Chloride (NS Flush) 2 ml BID IV FLUSH Last administered on 06/30/17at 08: 50; Start 06/27/17 at 21:00 A/P Problem List: (1) Fever of unknown origin (FUO) ICD Code: R50.9 - Fever, unspecified Status: Acute (2) Rash due to allergy ICD Code: R21 - Rash and other nonspecific skin eruption Status: Acute Assessment and Plan A/P fever with rash- suspect due to bactrim -Blood cultures 2 performed in the ED, negative so far. -Acetaminophen 650 mg p.o. every 4 hours as needed fever -Benadryl 50 mg p.o. every 6 hours as needed pruritus -continue IV steroids. -Infectious disease consultation appreciated; no antibiotics for now. Renal insufficiency, acute -resolved. Hypothyroidism -TSH elevated on admission but free T4 is within normal parameters -Continue home Synthroid Neuropathy -Resumed home medications: Neurontin, Cymbalta DVT prophylaxis -Heparin 5000 units subcu every 12 hours [facility]charge [facility] see med list. d/w the patient. Ivette Osman MD Jun 30, 2017 12:13
[2017-06-30] MEDS ORDERED: MEDR4PAK PO (12:20)
[2017-06-30] MEDS ORDERED: DIPH25CA PO (12:20)
--- NOTE | 2017-06-30 12:21 | HHI.DCPOC ---
Discharge Care Plan Diagnosis: (1) Rash due to allergy (2) Fever (3) Allergy to Bactrim Goals to Promote Your Health * To prevent worsening of your condition and complications * To maintain your health at the optimal level Directions to Meet Your Goals Take your medications as prescribed Follow your dietary instruction Follow activity as directed Keep your appointments as scheduled Take your immunizations and boosters as scheduled If your symptoms worsen call your PCP, if no PCP go to Urgent Care Center or Emergency Room Smoking is Dangerous to Your Health. Avoid second hand smoke Call the 24-hour hour crisis hotline for domestic abuse at Anahy Davalos PA-C Jun 30, 2017 12:21 pm
--- NOTE | 2017-06-30 12:50 | HHI.IDPN ---
Subjective Subjective Remarks Patient is a 52-year-old female, presented to the hospital complaining of fever and rash for 2 days. Patient has known recurrent metastatic melanoma, and has been on treatment with immunotherapy since March of this year. She has been getting treatment every 3 weeks, the last one was June 17. His initial melanoma was back in 2015, and at that time he had a postoperative infection in his left lower extremity. Since then she has not had any problem with any infection in her left lower extremity. About a week or so ago, she developed redness in her left leg, and patient was started on Bactrim. 2 days prior to admission she started having fever and chills, and she initially noted a rash on her leg, and soon after that she noted the rash in her upper extremity, and then became generalized. She has been taking nonsteroidal agents for her high fevers. She denies any respiratory complaint, any GI or any urinary complaints. Since admission highest temperature has been 100.7. Her WBC is down to 3.7. Urinalysis is unremarkable. Chest x-ray is okay. Patient got a dose of cefepime yesterday. She is currently not on any antibiotics. Infectious disease consultation has been requested to evaluate the patient. Notes reviewed Temps ok Rash better, less itchy Anxious to go home BC negative WBC better Antibiotics No antibiotics Lines PIV Past Medical History Metastatic melanoma recurrence -currently on immunotherapy at [facility] with oncologist Dr. Roberts Peripheral neuropathy Hypothyroidism Vitamin B12 deficiency Past Surgical History Bilateral breast biopsies Wide excision of the left upper thigh melanoma with sentinel node biopsy 2015 Allergies: Coded Allergies: sulfamethoxazole (Verified Allergy, Severe, Rash, 06/30/17) trimethoprim (Verified Allergy, Severe, Rash, 06/30/17) Objective . Vital Signs Date Time Temp Pulse Resp B/P (MAP) Pulse Ox O2 Delivery O2 Flow Rate FiO2 06/30/17 11:54 98.0 70 16 107/64 (78) 97 06/30/17 07:48 98.3 70 16 105/61 (76) 95 06/30/17 05:47 98.9 70 16 110/59 (76) 95 06/30/17 00:34 97.9 68 16 116/69 (85) 98 06/30/17 06/30/17 07/01/17 15:00 23:00 07:00 # Voids 1 . Laboratory Tests Test 06/29/17 19:41 White Blood Count 4.6 TH/MM3 Red Blood Count 3.77 MIL/MM3 Hemoglobin 11.1 GM/DL Hematocrit 32.2 % Mean Corpuscular Volume 85.2 FL Mean Corpuscular Hemoglobin 29.4 PG Mean Corpuscular Hemoglobin Concent 34.5 % Red Cell Distribution Width 14.8 % Platelet Count 114 TH/MM3 Mean Platelet Volume 8.1 FL Neutrophils (%) (Auto) 78.0 % Lymphocytes (%) (Auto) 16.1 % Monocytes (%) (Auto) 4.5 % Eosinophils (%) (Auto) 0.4 % Basophils (%) (Auto) 1.0 % Neutrophils # (Auto) 3.6 TH/MM3 Lymphocytes # (Auto) 0.7 TH/MM3 Monocytes # (Auto) 0.2 TH/MM3 Eosinophils # (Auto) 0.0 TH/MM3 Basophils # (Auto) 0.0 TH/MM3 CBC Comment DIFF FINAL Differential Comment Microbiology Date/Time Source Procedure Growth Status 06/27/17 15:50 Nasal Washing Influenza Types A,B Antigen (JIMMY) - Final NEGATIVE FOR FLU A AND B ANTIGEN.... Complete Imaging Last Impressions Chest X-Ray 06/27/17 1116 Signed Impressions: Service Date/Time: Tuesday, June 27, 2017 11:44 - CONCLUSION: No acute disease. Board Certified Radiologist. This report was verified electronically. Lower Extremity Ultrasound 06/27/17 0000 Signed Impressions: Service Date/Time: Tuesday, June 27, 2017 12:34 - CONCLUSION: 1. No DVT left leg. 2. Several lymph nodes in left groin the largest measuring 2.8 x 1.5 x 2.4 cm. Edson Yoder MD Physical Exam GENERAL: awake and alert, not in respiratory distress. SKIN: Warm and dry. She has a generalized erythematous maculopapular rash - better, except in her LLE EYES: [place] conjunctiva. No petechia or hemorrhage. Has mild conjunctival injection in the left eye. Pupils equal, round and reactive to light. Extraocular movements full and intact. No scleral icterus. EARS, NOSE AND THROAT: Nose without bleeding or purulent nasal discharge. No sinus tenderness. Mucous membranes pink and slightly dry. No oral lesions noted. No exudate. No oral thrush. NECK: Trachea midline. Supple and not tender, no meningeal signs CARDIOVASCULAR: Regular rate and rhythm. No murmurs, rubs or gallops heard RESPIRATORY: Clear to auscultation. Breath sounds equal bilaterally. No rales , wheezing or rhonchi ABDOMEN: Soft, non-tender, nondistended. Bowel sounds present and normoactive. No guarding. No rebound. No organomegaly. EXTREMITIES: No clubbing, cyanosis. LLE larger compared to RLE. Has scattered nodules in LLE, some are red color, some are purplish color in varying sizes. No joint effusion, has good ROM. No calf tenderness. Well perfused and warm. NEUROLOGICAL: Non-focal PSYCHIATRIC: Normal affect, calm and cooperative. LINE: No evidence of infection Assessment & Plan Remarks IMPRESSION Febrile illness with rash, likely due to Bactrim, better Drug eruption due to Bactrim, same Recurrent melanoma LLE Neutropenia, ?due to bactrim RECOMMENDATION OK to D/C Continue steroids at home Explained plan to the patient D/W Edna Almonte MD Jun 30, 2017 12:50
--- NOTE | 2017-06-30 12:54 | HHI.DS ---
Discharge Summary Admission Date Jun 27, 2017 at 16:00 Discharge Date: Jun 30, 2017 Admitting Diagnosis fever of unknown etiology, on immunotherapy, rash (1) Fever of unknown origin (FUO) ICD Code: R50.9 - Fever, unspecified Diagnosis: Principal Status: Acute (2) Rash due to allergy ICD Code: R21 - Rash and other nonspecific skin eruption Diagnosis: Principal Status: Acute Procedures none Brief History - From Admission Mrs. Sevilla is a very pleasant female patient with a history of recurrent metastatic melanoma being treated [facility] with immunotherapy. She presented to the emergency room at the advice of her primary care physician at the [facility] for evaluation of fever and pruritic rash 2 days. The patient is seen in the [facility]. The patient was treated 2 weeks ago for left lower extremity cellulitis with Bactrim and she only has 1 dose remaining since treatment started. She reports that she has had a fever up to 102 that has persisted despite treatment with Tylenol and Motrin (fever initially responded to these but not this morning prompting her to seek medical advice). Her symptoms started on 06/25. Along with the fever, came a rash that she initially thought was a "heat rash" until it continued to spread all over her body over the course of 2 days. The rash is pruritic in nature. She has some associated chills, increased thirst, and nausea without vomiting. She denies any diarrhea , cough, chest pain, or shortness of breath. CBC/BMP: 06/29/17 1941 06/28/17 0820 Significant Findings Laboratory Tests Test 06/28/17 08:20 06/29/17 19:41 White Blood Count 3.7 TH/MM3 (4.0-11.0) Platelet Count 104 TH/MM3 (150-450) 114 TH/MM3 (150-450) Neutrophils (%) (Auto) 79.6 % (16.0-70.0) 78.0 % (16.0-70.0) Lymphocytes # (Auto) 0.5 TH/MM3 (1.0-4.8) 0.7 TH/MM3 (1.0-4.8) Calcium Level 7.5 MG/DL (8.5-10.1) Chloride Level 108 MEQ/L (98-107) Estimat Glomerular Filtration Rate 63 ML/MIN (>89) Aspartate Amino Transf (AST/SGOT) 48 U/L (15-37) Total Protein 6.0 GM/DL (6.4-8.2) Albumin 2.9 GM/DL (3.4-5.0) Red Blood Count 3.77 MIL/MM3 (4.00-5.30) Hemoglobin 11.1 GM/DL (11.6-15.3) Hematocrit 32.2 % (35.0-46.0) Imaging Last Impressions Chest X-Ray 06/27/17 1116 Signed Impressions: Service Date/Time: Tuesday, June 27, 2017 11:44 - CONCLUSION: No acute disease. Board Certified Radiologist. This report was verified electronically. Lower Extremity Ultrasound 06/27/17 0000 Signed Impressions: Service Date/Time: Tuesday, June 27, 2017 12:34 - CONCLUSION: 1. No DVT left leg. 2. Several lymph nodes in left groin the largest measuring 2.8 x 1.5 x 2.4 cm. Edson Yoder MD PE at Discharge GENERAL: This is a well-nourished, well-developed patient, in no apparent distress. CARDIOVASCULAR: Regular rate and regular rhythm without murmurs, gallops, or rubs. RESPIRATORY: Clear to auscultation. Breath sounds equal bilaterally. No wheezes , rales, or rhonchi. GASTROINTESTINAL: Abdomen soft, non-tender, nondistended. Normal, active bowel sounds MUSCULOSKELETAL: Extremities without clubbing, cyanosis, or edema. NEURO: Alert & Oriented x4 to person, place, time, situation. Moves all ext x4 skin; macular rash noted on the lower extremities and trunk Hospital Course fever with rash- suspect due to bactrim -Blood cultures 2 performed in the ED, negative so far. -Acetaminophen 650 mg p.o. every 4 hours as needed fever -Benadryl 50 mg p.o. every 6 hours as needed pruritus -continue IV steroids. -Infectious disease consultation appreciated; no antibiotics for now. Renal insufficiency, acute -resolved. Hypothyroidism -TSH elevated on admission but free T4 is within normal parameters -Continue home Synthroid Neuropathy -Resumed home medications: Neurontin, Cymbalta DVT prophylaxis -Heparin 5000 units subcu every 12 hours Pt Condition on Discharge: Fair Discharge Disposition: Discharge Home Discharge Time: <= 30 minutes Discharge Instructions DIET: Follow Instructions for: As Tolerated, No Restrictions Activities you can perform: Regular-No Restrictions Ivette Osman MD Jun 30, 2017 12:54
== END 2017-06-30 13:50 | disposition home or self-care (01) ==
LOC: NEPE 10:34 → NEDA 16:00 → NEPHCDU 19:13
PROVIDERS: ADMIT Internal Medicine; ATTEND Internal Medicine
DX: R50.9 Fever, unspecified (principal); R21 Rash and other nonspecific skin eruption; N28.9 Disorder of kidney and ureter, unspecified; I45.10 Unspecified right bundle-branch block; D69.6 Thrombocytopenia, unspecified; E03.9 Hypothyroidism, unspecified; G62.9 Polyneuropathy, unspecified; Z79.899 Other long term (current) drug therapy; Z85.820 Personal history of malignant melanoma of skin
CPT/HCPCS: 71045; 80048; 80053; 80076; 81001; 83605; 83690; 83735; 84439; 84443; 85025; 85610; 85730; 87040; 87804; 93005; 93971; 96361; 96365; 96372; 96375; 96376; 99285; G0378; J0692; J1200; J1644; J2920; J7030; Q0163